=== PATIENT | female | born 1970 | race Caucasian/White ===

== ENCOUNTER → 2023-11-16 07:28 | Outpatient (CLI) | payer BC, SELFPAY ==
--- NOTE | 2023-11-16 07:29 | DI.US.S_ITS ---
PROCEDURE: US ABDOMEN LIMITED INDICATIONS: CIRRHOSIS / HCC SCREENING TECHNIQUE: Real-time scanning was performed of the abdominal and retroperitoneal organs, with image documentation. COMPARISON: None. FINDINGS: Liver: Liver is normal in size with heterogeneous and coarsened echotexture. No focal observations identified. Irregular liver contour. IMPRESSION: Cirrhosis. No focal observations. Approved by: Ana Millan M.D.,Ph.D. on 11/17/2023 at 1:06
== END ==
PROVIDERS: Referring Provider Nurse Practitioner Family; Visit Provider Nurse Practitioner Family
DX: K74.60 Unspecified cirrhosis of liver (principal); I85.00 Esophageal varices without bleeding
CPT/HCPCS: 76705